=== PATIENT | female | born 1975 | race Caucasian/White ===

== ENCOUNTER 2016-09-13 05:26 | Emergency (ER) | payer SELFPAY ==
[2016-09-13] MEDS ORDERED: DICYCLOMINE 10 MG CAP ONE (06:09)
[2016-09-13] MEDS ORDERED: ONDANSETRON ODT 4 MG TAB ONE (06:10)
== END 2016-09-13 07:28 | disposition home or self-care (01) ==
LOC: ER 05:26
DX: R11.2 Nausea with vomiting, unspecified (principal); R19.7 Diarrhea, unspecified; N30.01 Acute cystitis with hematuria; A59.01 Trichomonal vulvovaginitis
CPT/HCPCS: 36415; 74022; 80053; 81001; 83690; 84703; 85025; 87077; 87088; 87186; 87804